=== PATIENT | female | born 1975 | race Two or more races ===

== ENCOUNTER 2020-01-31 21:58 | Emergency (ER) | payer OTHER ==
[~2020-01-31] VITALS: Ht 149.9 cm; Wt 48.0 kg
[2020-01-31 22:25] VITALS: BP 110/70
== END 2020-02-01 00:13 | disposition home or self-care (01) ==
LOC: ER 21:58
DX: S00.12XA Contusion of left eyelid and periocular area, initial encounter (principal); J45.909 Unspecified asthma, uncomplicated; Z98.890 Other specified postprocedural states; Z90.710 Acquired absence of both cervix and uterus; Y08.89XA Assault by other specified means, initial encounter; Y93.89 Activity, other specified; Y92.89 Other specified places as the place of occurrence of the external cause; Y99.8 Other external cause status
CPT/HCPCS: 99282